=== PATIENT | male | born 1945 | race Caucasian/White ===

== ENCOUNTER 2017-10-16 15:41 | Observation (INO) | payer BC, OTHER ==
[2017-10-16 18:28] LABS: ADD MAN DIFF? NO
[2017-10-16 18:35] LABS: WHITE BLOOD COUNT 9.4 10^3/ul (4.8-10.8)
[2017-10-16 18:35] LABS: BASOPHILS % 0.3 % (0.0-2.0); EOSINOPHILS % 0.4 % (0.0-7.0); HEMATOCRIT 41.7 % (42.0-52.0); HEMOGLOBIN 14.7 g/dl (14.0-18.0); LYMPHOCYTES # 2.7 10^3/ul (0.8-2.9); LYMPHOCYTES % 28.7 % (15.0-51.0); MEAN CORPUSCULAR HEMOGLOBIN 31.7 pg (29.0-33.0); MEAN CORPUSCULAR HGB CONC 35.3 g/dl (32.0-37.0); MEAN CORPUSCULAR VOLUME 90.1 fl (82.0-101.0); MEAN PLATELET VOLUME 10.4 fl (7.4-10.4); MONOCYTE # 0.7 10^3/ul (0.3-0.9); MONOCYTES % 7.1 % (0.0-11.0); NEUTROPHILS % 63.2 % (39.0-77.0); PLATELET COUNT 282 10^3/UL (140-415); RED BLOOD COUNT 4.63 10^6/ul (4.70-6.10); RED CELL DISTRIBUTION WIDTH 12.6 % (11.5-14.5)
[2017-10-16 18:41] LABS: ANION GAP 19 (8-16); BLOOD UREA NITROGEN 22 mg/dl (7-20); CARBON DIOXIDE 24 mmol/L (21-31); CHLORIDE 101 mmol/L (97-110); CREATININE 1.07 mg/dl (0.61-1.24); GLUCOSE 159 mg/dl (70-220); POTASSIUM 4.3 mmol/L (3.5-5.1); SODIUM 140 mmol/L (135-144)
[2017-10-16 18:50] LABS: TROPONIN-I < 0.010 ng/ml (0.000-0.120)
[2017-10-16] MEDS: NITROGLYCERIN 2% 1 GM OINT PKT TD (19:04)
[2017-10-16] MEDS: NITROGLYCERIN (SL) 0.4 MG TAB SL (19:04)
[2017-10-16] MEDS: ASPIRIN 81 MG TAB PO (19:04)
[2017-10-16] MEDS ORDERED: ONDANSETRON 4 MG INJ IV (20:30)
[2017-10-16] MEDS ORDERED: ACETAMINOPHEN 325 MG TAB PO ×2 (20:30→23:30)
[2017-10-16] MEDS ORDERED: NITROGLYCERIN (SL) 0.4 MG TAB SL (23:30)
[2017-10-17 01:33] LABS: CREATINE KINASE 102 IU/L (23-200)
[2017-10-17 01:48] LABS: CK INDEX 0.8; CK-MB 0.83 ng/ml (0.0-2.4); TROPONIN-I < 0.010 ng/ml (0.000-0.120)
[2017-10-17] MEDS ORDERED: GLUCOSE GEL 15 GRAM TUBE PO ×2 (07:00)
[2017-10-17] MEDS ORDERED: GLUCAGON 1 MG INJ IM (07:00)
[2017-10-17] MEDS ORDERED: GLUCOSE GEL 15 GRAM TUBE BUCCAL (07:00)
[2017-10-17] MEDS ORDERED: LORAZEPAM 0.5 MG TAB PO (07:00)
[2017-10-17] MEDS ORDERED: DEXTROSE 50% 50 ML SYRINGE IV ×2 (07:00)
[2017-10-17 07:23] LABS: ADD MAN DIFF? NO
[2017-10-17 07:28] LABS: BASOPHILS % 0.4 % (0.0-2.0); EOSINOPHILS # 0.1 10^3/ul (0.0-0.5); EOSINOPHILS % 1.5 % (0.0-7.0); HEMATOCRIT 39.3 % (42.0-52.0); HEMOGLOBIN 13.3 g/dl (14.0-18.0); LYMPHOCYTES # 2.2 10^3/ul (0.8-2.9); LYMPHOCYTES % 29.5 % (15.0-51.0); MEAN CORPUSCULAR HEMOGLOBIN 31.1 pg (29.0-33.0); MEAN CORPUSCULAR HGB CONC 33.8 g/dl (32.0-37.0); MEAN PLATELET VOLUME 10.5 fl (7.4-10.4); MONOCYTE # 0.8 10^3/ul (0.3-0.9); MONOCYTES % 10.8 % (0.0-11.0); NEUTROPHIL # 4.3 10^3/ul (1.6-7.5); NEUTROPHILS % 57.4 % (39.0-77.0); PLATELET COUNT 241 10^3/UL (140-415); RED BLOOD COUNT 4.27 10^6/ul (4.70-6.10)
[2017-10-17 07:28] LABS: WHITE BLOOD COUNT 7.4 10^3/ul (4.8-10.8)
[2017-10-17 07:47] LABS: CREATINE KINASE 96 IU/L (23-200)
[2017-10-17 07:49] LABS: ALANINE AMINOTRANSFERASE 39 IU/L (13-69); ALBUMIN/GLOBULIN RATIO 1.33; ALKALINE PHOSPHATASE 51 IU/L (42-121); ANION GAP 14 (8-16); ASPARTATE AMINO TRANSFERASE 27 IU/L (15-46); BILIRUBIN,INDIRECT 0.5 mg/dl (0-1.1); BILIRUBIN,TOTAL 0.5 mg/dl (0.2-1.3); BLOOD UREA NITROGEN 25 mg/dl (7-20); CALCIUM 9.5 mg/dl (8.4-10.2); CARBON DIOXIDE 27 mmol/L (21-31); CHLORIDE 104 mmol/L (97-110); CHOL/HDL RATIO 4.9 RATIO; CHOLESTEROL 143 mg/dl (100-200); CREATININE 0.98 mg/dl (0.61-1.24); GLUCOSE 125 mg/dl (70-220); HDL CHOLESTEROL 29 mg/dl (31-75); LDL CHOLESTEROL,CALCULATED 75 mg/dl; POTASSIUM 4.7 mmol/L (3.5-5.1); SODIUM 140 mmol/L (135-144); TRIGLYCERIDES 194 mg/dl (0-149)
[2017-10-17 07:59] LABS: CK INDEX 0.8; CK-MB 0.81 ng/ml (0.0-2.4); TROPONIN-I < 0.010 ng/ml (0.000-0.120)
[2017-10-17 08:09] LABS: HEMOGLOBIN A1C 6.6 % (0-5.9)
[2017-10-17 08:18] LABS: THYROID STIMULATING HORMONE 0.999 MIU/L (0.465-4.680)
[2017-10-17] MEDS: ASPIRIN (EC) 81 MG TAB PO (09:07)
[2017-10-17] MEDS: HYDROCHLOROTHIAZIDE 25 MG TAB PO (09:07)
[2017-10-17] MEDS: metFORMIN 500 MG TAB PO (09:07)
[2017-10-17] MEDS: LISINOPRIL 20 MG TAB PO (09:08)
[2017-10-17] MEDS: PANTOPRAZOLE (EC) 40 MG TAB PO (09:11)
[2017-10-17] MEDS ORDERED: ATORVASTATIN 40 MG TAB PO (21:00)
== END 2017-10-17 13:35 | disposition home or self-care (01) ==
LOC: TEL 20:22 → E/R 15:41
DX: R07.9 Chest pain, unspecified (principal); I10 Essential (primary) hypertension; E11.9 Type 2 diabetes mellitus without complications; Z79.84 Long term (current) use of oral hypoglycemic drugs; Z87.891 Personal history of nicotine dependence; F41.9 Anxiety disorder, unspecified; R91.1 Solitary pulmonary nodule
CPT/HCPCS: 36415; 71045; 71250; 80048; 80053; 80061; 82550; 82553; 83036; 84443; 84484; 85025; 93005; 93306; 99285-25; G0378